=== PATIENT | female | born 1950 | race Caucasian/White ===

== ENCOUNTER 2020-04-14 14:28 | Outpatient (CLI) | payer MEDICARE ==
--- NOTE | 2020-04-14 14:58 | SJPRAD ---
CHEST PA LAT ROUTINE History: Shortness of breath Comparison: None Findings: Abnormal lobular mass left upper lobe measuring up to 2.8 cm. Pulmonary arteries are mildly distended. No pneumothorax. No significant effusion. Mild degenerative changes of the thoracic spine. Old left humeral neck fracture. Impression: 2.8 cm left upper lobe mass concerning for malignancy. Chest CT recommended. Thad Randhawa was notified of findings via [place].
== END 2020-04-14 14:29 | disposition home or self-care (01) ==
LOC: SCSRAD 14:28
PROVIDERS: ATTEND Physician Assistant
DX: R06.02 Shortness of breath (principal); R91.8 Other nonspecific abnormal finding of lung field
CPT/HCPCS: 87635; U0003

== ENCOUNTER 2020-05-11 12:11 | Outpatient (CLI) | payer MEDICARE ==
--- NOTE | 2020-05-11 13:05 | RAD ---
PA AND LATERAL VIEWS CHEST: HISTORY: Dyspnea. COMPARISON: Comparison is made the exam of 04/14/2020. FINDINGS: The heart size is normal. The aorta is tortuous. The nodular density in the left upper lobe is agai n seen. No lobar consolidation, pneumothoraces, or pleural effusions are seen. There are degenerati ve changes in the spine. There is an old healed fracture deformity of the left proximal humerus. POS: AH
== END 2020-05-11 12:12 | disposition home or self-care (01) ==
LOC: BICRAD 12:11
PROVIDERS: ATTEND Internal Medicine Pulmonary Disease
DX: R06.00 Dyspnea, unspecified (principal)
CPT/HCPCS: 71046

== ENCOUNTER 2020-05-17 10:13 | Outpatient (CLI) | payer MEDICARE ==
--- NOTE | 2020-05-17 11:26 | MMO ---
Bilateral MAMMO Bilat Diag DDI+NAKIA. CLINICAL HISTORY: Patient is 70 years old and is seen for diagnostic exam. VIEWS: The views performed were: bilateral craniocaudal with tomosynthesis; bilateral mediolateral oblique with tomosynthesis; and bilateral mediolateral with tomosynthesis. FILMS COMPARED: The present examination has been compared to a prior imaging study performed at [facility] on 05/17/2020. This study has been interpreted with the assistance of computer-aided detection. MAMMOGRAM FINDINGS: There are scattered fibroglandular densities. Spiculated mass mid left breast mid depth retroareolar. This lesion is not identified on ultrasound. Recommend stereotactic biopsy. In the right breast, there are no suspicious masses, calcifications or areas of architectural distortion. IMPRESSION: FINDING IN THE LEFT BREAST IS SUSPICIOUS. BIOPSY IS RECOMMENDED. THE RESULTS OF THIS EXAM WERE SENT TO THE PATIENT. ACR BI-RADS Category 4 - Suspicious abnormality - stereotactic biopsy scheduled. MAMMOGRAPHY NOTE: 1. A negative mammogram report should not delay a biopsy if a dominant of clinically suspicious mass is present. 2. Approximately 10% to 15% of breast cancers are not detected by mammography. 3. Adenosis and dense breasts may obscure an underlying neoplasm. Reported by: HOPE GROSS MD Electonically Signed: [id number]
--- NOTE | 2020-05-17 13:48 | ULT ---
ULTRASOUND LEFT BREAST: INDICATION: Ultrasound of left breast performed to assess a spiculated mass seen in the mid left breast retroareo lar region on mammography. FINDINGS: No sonographic abnormality identified. The spiculated mass seen on mammography is not identified by ultrasound. Recommend stereotactic biopsy of the mammographic lesion. IMPRESSION: BIRADS 4, suspicious lesion seen on mammogram. Stereotactic biopsy is recommended and is being sched uled. POS: OFF
== END 2020-05-17 10:14 | disposition home or self-care (01) ==
LOC: BICMAMMO 10:13
PROVIDERS: ATTEND Family Medicine
DX: R93.89 Abnormal findings on diagnostic imaging of other specified body structures (principal); N64.89 Other specified disorders of breast
CPT/HCPCS: 76642; 77066; G0279

== ENCOUNTER 2020-05-20 08:17 | Outpatient (CLI) | payer MEDICARE ==
--- NOTE | 2020-05-20 15:44 | PET ---
PET CT FROM SKULL TO MID THIGH: INDICATION: History of solitary pulmonary nodule. COMPARISON: Prior diagnostic mammogram dated 05/17/[address] of the thorax dated 04/16/2020. RADIOPHARMACEUTICAL: 11.6 mCi of F18-FDG IV. FINDINGS: The biodistribution for the examination appears acceptable. HEAD AND NECK: No hypermetabolic head and neck abnormality is evident. CHEST: The large pulmonary nodule within the superior segment of the left lower lobe, abutting the left jolie r fissure, is relatively stable in size to the comparison CT measuring 2.7 x 1.8 cm. The peak SUV ac tivity associated with this lesion is 4.2 and mean activity is 3.61. There are persistent scattered reticulonodular opacities within both upper lobes as well as portions of the right lower lobe with mild suspected increased metabolic uptake. These are not grossly hyperm etabolic. The ground-glass nodular opacity within the posterior segment of the left upper lobe is st able in size measuring 1.3 cm with no associated hypermetabolic uptake. The spiculated mass within the left breast demonstrates increased metabolic uptake with a max of 2.44 and a mean uptake of 2.25. No hypermetabolic lymphadenopathy is evident. ABDOMEN AND PELVIS: There are bilateral adrenal adenomas within the adrenal glands based on Hounsfield characteristics. These lesions demonstrate no hypermetabolic uptake. 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 There are bilateral renal cysts without a hypermetabolic uptake. N o hypermetabolic mass or lymphadenopathy is seen within the abdomen and pelvis. SKIN AND OSSEOUS STRUCTURES: No hypermetabolic osseous lesion is evident. There is a hemangioma within the left aspect of L4. No definite hypermetabolic osseous lesion is identified. IMPRESSION: Abnormal PET CT. 1. The pulmonary lesion involving the superior segment of the left lobe is hypermetabolic and is johana picious for malignancy or metastatic disease given the patient's spiculated mass lesion in the left b reast with increased metabolic uptake. Recommend consideration for image-guided sampling for further characterization. 2. Scattered reticulonodularity within both upper lobes as well as portions of the right lower lobe is suspicious for persistent bronchiolitis; however, early metastatic disease could have a similar ap pearance. 3. The bilateral adrenal nodules have Hounsfield characteristics on the noncontrast CT portion of th e examination consistent with adenomas and no associated hypermetabolic uptake. 4. Stable left renal angiomyelipoma, left renal cyst and left nephrolithiasis. 5. No hypermetabolic abnormality is seen within the abdomen and pelvis. No hypermetabolic osseous m etastatic lesion identified. POS: BH
== END 2020-05-20 08:18 | disposition home or self-care (01) ==
LOC: PET 08:17
PROVIDERS: ATTEND Internal Medicine Pulmonary Disease
DX: R91.8 Other nonspecific abnormal finding of lung field (principal); J98.4 Other disorders of lung; D17.71 Benign lipomatous neoplasm of kidney; N28.1 Cyst of kidney, acquired; N20.0 Calculus of kidney; E27.8 Other specified disorders of adrenal gland
CPT/HCPCS: 78815; A9552

== ENCOUNTER → 2020-05-26 | Day surgery (SDC) | payer MEDICARE ==
--- NOTE | 2020-05-26 09:20 | MMO ---
EXAM: MAMMO Brst Bx Stereo Biopsy marker clip placement left breast PROVIDED CLINICAL HISTORY: Spiculated mass central left breast. Biopsy recommended. COMPARISON: Mammograms on 05/17/2020 TECHNIQUE: The procedure including the risks and complications were explained to the patient, and informed conse nt was obtained. Patient was placed on the stereotactic guided breast biopsy table in the prone position. The spiculated mass in the central left breast was localized utilizing stereotactic guidanc e. The area was prepped in usual fashion, and the skin and subcutaneous tissues were infiltrated with buffered 1% lidocaine for local anesthesia. A small skin incision was made. A 10-gauge biopsy needle was advanced followed by stereotactic images . The needle was further advanced, and again imaging was performed demonstrating the needle within the central aspect of the mass. A total of six 10-gauge core needle biopsy specimens were obtained. A biopsy marker clip was deployed at site of biopsy within the mass. Hemostasis was achieved with direct pressure. A dry sterile dressing was placed. Patient tolerated th e procedure well and without immediate complication. Patient was transported to mammography for additional imaging. IMPRESSION: 1. Technically successful stereotactic guided biopsy of a left breast spiculated mass. Total of 6 cor e needle biopsy specimens were obtained. Pathology is pending. 2. Technically successful biopsy marker clip placement.
--- NOTE | 2020-05-26 09:23 | MMO ---
EXAM: MAMMO Diag Post Proc Ltd Lt PROVIDED CLINICAL HISTORY: Spiculated mass left breast. Patient is post stereotactic guided breast biopsy and biopsy marker clip placement COMPARISON: Mammograms on 05/17/2020 FINDINGS: Mammograms again demonstrate the spiculated mass in the middle depth slightly inner left breast. Biop sy marker clip is now seen adjacent to the mass related to recent biopsy and biopsy marker clip placement. IMPRESSION: Post biopsy mammogram demonstrates biopsy marker clip at site of biopsy left breast.
== END ==
LOC: MAMMO 06:50
PROVIDERS: ATTEND Family Medicine
PROC: 0H9U3ZX Drainage of Left Breast, Percutaneous Approach, Diagnostic (ICD-10-PCS; principal; 2020-05-26)
DX: C50.112 Malignant neoplasm of central portion of left female breast (principal)
CPT/HCPCS: 19081; 88305; 88341; 88342

== ENCOUNTER 2020-06-01 08:11 | Day surgery (SDC) | payer MEDICARE ==
[2020-05-31 11:45] VITALS: BMI 46.5
[2020-06-01 08:36] LABS: #Basophils 0.1 thou/uL (0.0-0.2); #Eosinphils 0.3 thou/uL (0.0-0.7); #Monocytes 0.5 thou/uL (0.11-0.59); #Neutrophils 7.8 thou/uL (1.40-6.50); %Basophils 0.8 % (0.0-1.0); %Eosinophils 3.1 % (0.0-10.0); %Lymphocytes 18.8 % (21.0-51.0); %Monocytes 4.7 % (0.0-10.0); %Neutrophils 72.5 % (42.0-75.0); Hemoglobin 14.4 g/dL (12.0-16.0); Mean Corpuscular HGB CONC 32.3 g/dL (32.0-36.0); Mean Corpuscular Hemoglobin 28.8 pg (27.0-31.0); Mean Platelet Volume 8.8 fL (7.4-10.4); Platelet Count 284 thou/uL (130-400); RBC Distribution Width 13.2 % (11.5-14.5); White Blood Cell (WBC) Count 10.7 thou/uL (4.8-10.8)
[2020-06-01 08:38] LABS: INR-International Normal Ratio 0.9; Prothrombin Time 12.8 sec (12.0-14.7)
[2020-06-01 08:39] LABS: PTT 30.3 sec (22.9-36.1)
[2020-06-01 09:37] VITALS: BP 174/93; TEMP 98
--- NOTE | 2020-06-01 11:02 | RAD ---
Chest 2 views inspiratory expiratory HISTORY: Lung mass. Biopsy. FINDINGS: Lungs are well-inflated. Lobular density at the left apex (actually in the superior segment lower lobe) is more conspicuous and larger, consistent with a small amount of blood around the biopsy site. No evidence of pneumothorax. Old fracture of the left shoulder again demonstrated. IMPRESSION : No evidence of pneumothorax.
--- NOTE | 2020-06-01 11:13 | CT ---
Left lung mass CT-guided Conscious sedation: Approximately 30 minutes spent with the patient for conscious sedation. HISTORY: Left lower lobe lung mass. FINDINGS: After explaining the procedure and answering all questions, limited CT imaging of the chest was performed with patient in left lateral decubitus position. Sterile technique, buffered local anesthesia, conscious sedation, CT guidance, and a posterior approa ch were used to carefully advance the tip of a 19-gauge trocar needle to the lobular mass at the apex of the superior segment left lower lobe. Position was confirmed with CT. A total of 2 20-gauge specimens were obtained, the first with a good core of white tissue. The second yielding little tissue.. There was venous blood from the trocar needle. Patient began to cough, so additional samples were not obtained because of increasing risk of pneumothorax.. Needle was removed. No evidence of complication. Small amount of blood was seen around the mass after biopsy. Patient tolerated the procedure well and was returned to the holding area in good condition for further monitoring. IMPRESSION : Technically successful CT-guided biopsy left lower lobe lung mass. Pathology is pending.
--- NOTE | 2020-06-01 12:14 | RAD ---
Chest 2 views inspiratory expiratory HISTORY: Lung mass. Biopsy. COMPARISON: 06/01/2020. FINDINGS: Cardiac silhouette and pulmonary vasculature are unremarkable. Mediastinum is midline. Lobular mass at the left apex again demonstrated. No pneumothorax. IMPRESSION : No evidence of pneumothorax. Patient will be cleared radiographically for discharge.
--- NOTE | 2020-06-02 15:43 | CT ---
Left lung mass CT-guided Conscious sedation: Approximately 30 minutes spent with the patient for conscious sedation. HISTORY: Left lower lobe lung mass. FINDINGS: After explaining the procedure and answering all questions, limited CT imaging of the chest was performed with patient in left lateral decubitus position. Sterile technique, buffered local anesthesia, conscious sedation, CT guidance, and a posterior approa ch were used to carefully advance the tip of a 19-gauge trocar needle to the lobular mass at the apex of the superior segment left lower lobe. Position was confirmed with CT. A total of 2 20-gauge specimens were obtained, the first with a good core of white tissue. The second yielding little tissue.. There was venous blood from the trocar needle. Patient began to cough, so additional samples were not obtained because of increasing risk of pneumothorax.. Needle was removed. No evidence of complication. Small amount of blood was seen around the mass after biopsy. Patient tolerated the procedure well and was returned to the holding area in good condition for further monitoring. IMPRESSION : Technically successful CT-guided biopsy left lower lobe lung mass. Pathology is pending. Transcribed Date/Time: 06/02/2020 3:42 PM
== END 2020-06-01 12:20 | disposition home or self-care (01) ==
LOC: CT 08:11
PROVIDERS: ATTEND Internal Medicine Pulmonary Disease
PROC: 0BBJ3ZX Excision of Left Lower Lung Lobe, Percutaneous Approach, Diagnostic (ICD-10-PCS; principal; 2020-06-01)
DX: R91.1 Solitary pulmonary nodule (principal); N64.89 Other specified disorders of breast; I10 Essential (primary) hypertension; Z87.891 Personal history of nicotine dependence; Z79.899 Other long term (current) drug therapy; Z88.0 Allergy status to penicillin
CPT/HCPCS: 32405; 36415; 71045; 77012; 85025; 85610; 85730; 88305; 88341; 88342

== ENCOUNTER 2020-06-21 07:00 | Day surgery (SDC) | payer MEDICARE ==
[2020-06-18 10:47] VITALS: BMI 46.5
--- NOTE | 2020-06-21 08:45 | NM ---
Exam: Nuclear medicine lymphoscintigraphy HISTORY: Malignant neoplasm of the left breast. TECHNIQUE: Patient was administered 0.404 mCi of technetium 99m filtered sulfur colloid subcutaneousl y. FINDINGS: There are 2 sentinel lymph nodes. One lymph node appears to be in the left axilla. The second lymph n ode may be an intramammary lymph node. IMPRESSION: 2 sentinel lymph node as described above
[2020-06-21] MEDS ORDERED: Acetaminophen 500 MG TAB ONE (09:04)
[2020-06-21] MEDS ORDERED: Ketorolac Tromethamine 30 MG/ML VIAL ONE (09:04)
[2020-06-21] MEDS ORDERED: Rocuronium Bromide 10 MG/ML (10ML VIAL) ONE (09:28)
[2020-06-21] MEDS ORDERED: Ondansetron PF 4 MG/2 ML Vial ONE ×3 (09:28→14:43)
[2020-06-21] MEDS ORDERED: PHENYLEPHRINE-NS 100 MCG/ML 10 ML SYRINGE ONE (09:28)
[2020-06-21] MEDS ORDERED: Dexamethasone 20 MG/5 ML VIAL ONE (09:28)
[2020-06-21] MEDS ORDERED: PROPOFOL 200 MG/20 ML VIAL ONE (09:28)
[2020-06-21] MEDS ORDERED: Glycopyrrolate 0.2 MG/ML 5 ML SYRINGE ONE (09:28)
[2020-06-21] MEDS ORDERED: Lidocaine 1% PF 5 ML VIAL ONE (09:28)
[2020-06-21] MEDS ORDERED: Levofloxacin 500 mg/D5W 100 ml Premix Bag ONE (09:39)
[2020-06-21] MEDS ORDERED: Methylene Blue 50 MG/10 ML AMPUL ONE (11:12)
[2020-06-21] MEDS ORDERED: Bupivacaine/Epinephrine 0.25% 30 ML VIAL ONE (11:12)
[2020-06-21] MEDS ORDERED: Isosulfan Blue 50 MG/5 ML VIAL ONE (11:13)
[2020-06-21] MEDS ORDERED: Fentanyl 100 MCG/2 ML VIAL ONE (11:26)
[2020-06-21] MEDS ORDERED: Lidocaine 1% (PF) 30 ML VIAL ONE (13:11)
--- NOTE | 2020-06-21 15:41 | MMO ---
NEEDLE LOCALIZATION WITH MAMMOGRAPHIC GUIDANCE SURGICAL SPECIMENT: Date: 06/21/2020 HISTORY: Left breast cancer. FINDINGS: Successful left breast needle localization with mammographic guidance. 10 cm [place] needle and wire we re advanced adjacent to the clip and lesion. No immediate postprocedure complications. TECHNIQUE: Consent obtained to perform a left breast needle localization with mammographic guidance. Lesion was identified. Skin was prepped and draped in the sterile fashion. 1% lidocaine, buffered with sodium bi carbonate, was used for local anesthesia. Via a needle approach, a 10 cm [place] needle and wire were a dvanced into the left breast. Needle position was confirmed. Wire was deployed. Post deployment mammo gram was obtained. Wire and needle were secured to the patient. No immediate postprocedure complicati on. SPECIMEN RADIOGRAPH; Single radiograph specimen demonstrates a wire clip and lesion to be present. Findings were conveyed to the OR on 06/21/2020 at 1424 hours. IMPRESSION: Successful needle localization. Successful presentation of clip and lesion on the specimen radiograph . CODE CR. POS: MARYANA
[2020-06-21] MEDS ORDERED: HYDROcodone/Acetaminophen 5/325 mg Tablet ONE (15:55)
--- NOTE | 2020-06-21 19:16 | OP ---
DATE OF PROCEDURE: 06/21/2020 PREOPERATIVE DIAGNOSIS: Left breast cancer. POSTOPERATIVE DIAGNOSIS: Left breast cancer. PROCEDURES PERFORMED: Left breast needle localized lumpectomy, left axillary sentinel lymph node biopsy. ANESTHESIA: General endotracheal. INDICATIONS: The patient is a morbidly obese, 70-year-old white female, who was recently diagnosed with left breast cancer. She also had a lesion within her lung that was concerning, which has been biopsied and proven to be negative. She presents at this time for definitive surgery in regard to her breast cancer. She has undergone preoperative lymphoscintigraphy, revealing axillary sentinel lymph nodes and mammographic needle localization of the left breast mass. DESCRIPTION OF OPERATION: Informed consent was obtained. The patient was taken to the operating room, where general endotracheal anesthesia was obtained with the patient in supine position. Left breast and axilla were prepped with ChloraPrep and draped in sterile fashion. A 4 mL of Lymphazurin was infiltrated into the left breast in the periareolar subdermal tissue and was massaged for 5 minutes. Attention was turned first to the axilla. Local anesthetic was infiltrated using a mixture of 1% lidocaine with epinephrine and 0.25% Marcaine. A transverse incision was created and dissection carried through skin and subcutaneous tissue as well as ample fatty tissue. Careful dissection was carried out to identify 3 separate sentinel lymph nodes. All three had some radioactivity, but only two had any blue dye. These were each dissected circumferentially and all investing lymphatics were divided between clamps and 3-0 silk ties. Meticulous hemostasis was obtained within the wound. No further radioactivity was identified. The wound was closed in layers with 3-0 and 4-0 Monocryl and additional local anesthetic was instilled in the wound. Attention was turned to the breast. Ultrasound was used to trace the tract of the needle. This was an 8 cm needle that entered the left breast in a medial to lateral fashion at about 10 to 10:30 radian of the breast. Local anesthetic was infiltrated and an incision was created overlying the localizing needle. Dissection was carried deeply into the breast. I then dissected laterally to identify the needle, and at the juncture where the needle was 6 cm from the tip, the needle was removed and the wire was replaced to the main incision. The tissue was grasped with Allis clamps and a wide lumpectomy was performed around the localizing needle, ensuring appropriate posterior tissue since the cancer appeared to be on the posterior aspect of the needle. The specimen was removed intact and it was tagged for orientation and submitted to Radiology. Specimen mammography revealed the clip present within the specimen. Meticulous hemostasis was obtained within the wound. The wound was irrigated and all irrigant was aspirated. The wound was closed in layers with 3-0 and 4-0 Monocryl. Dermabond was placed externally to both incisions. Additional local anesthetic was infiltrated into both wounds. There were no complications. Blood loss was negligible. The patient tolerated the procedure well. Job ID: [id number]
== END 2020-06-21 16:44 | disposition home or self-care (01) ==
LOC: SDC 07:00
PROVIDERS: ATTEND Specialist
PROC: 0HBU0ZZ Excision of Left Breast, Open Approach (ICD-10-PCS; principal; 2020-06-21)
PROC: 07B60ZX Excision of Left Axillary Lymphatic, Open Approach, Diagnostic (ICD-10-PCS; 2020-06-21)
DX: C50.212 Malignant neoplasm of upper-inner quadrant of left female breast (principal); I10 Essential (primary) hypertension; Z17.0 Estrogen receptor positive status [ER+]; Z79.899 Other long term (current) drug therapy; Z87.891 Personal history of nicotine dependence; Z88.0 Allergy status to penicillin
CPT/HCPCS: 19281; 19301; 38525; 38900; 76098; 78195; 88307; 88342; A9541; Q9968; J1100; J1885; J1956; J2001; J2405; J2704; J3010

== ENCOUNTER 2020-10-19 08:53 | Outpatient (CLI) | payer MEDICARE ==
--- NOTE | 2020-10-19 09:33 | BD ---
Bone densitometry: INDICATIONS: Post menopausal screening Lumbar spine: BMD g/cm2 L1: 0.845 T-Score: -1.3 L2:0.941 T-Score: -0.8 L3:0.923 T-Score:-1.5 L4:0.961 T-Score:-0.9 L1-L4:0.922 T-Score:-1.1 Femoral neck:0.629 T-Score:-2.0 Total femur:0.717 T-Score:-1.8 IMPRESSION: 1. Bone mineral density of lumbar spineindicates osteopenia. 2. Bone mineral density of femoral neckindicates osteopenia. 10 year fracture risk: Major osteoporotic fracture:9.9% Hip fracture:1.8%
== END 2020-10-19 08:54 | disposition home or self-care (01) ==
LOC: BICMAMMO 08:53
PROVIDERS: ATTEND Internal Medicine Hematology & Oncology
DX: Z13.820 Encounter for screening for osteoporosis (principal); T38.6X5A Adverse effect of antigonadotrophins, antiestrogens, antiandrogens, not elsewhere classified, initial encounter; M85.89 Other specified disorders of bone density and structure, multiple sites; Z78.0 Asymptomatic menopausal state
CPT/HCPCS: 77080

== ENCOUNTER 2020-11-17 12:56 | Outpatient (CLI) | payer MEDICARE ==
[2020-11-17] MEDS ORDERED: Iopamidol 370 76% 100 ML VIAL ONE (14:54)
== END 2020-11-17 12:57 | disposition home or self-care (01) ==
LOC: BICCT 12:56
PROVIDERS: ATTEND Internal Medicine Hematology & Oncology
DX: C50.912 Malignant neoplasm of unspecified site of left female breast (principal); R91.8 Other nonspecific abnormal finding of lung field; J98.4 Other disorders of lung
CPT/HCPCS: 71260; 82565; Q9967

== ENCOUNTER 2021-05-27 09:02 | Outpatient (CLI) | payer MEDICARE | END 2021-05-27 09:03 | disposition home or self-care (01) | LOC: BICCT 09:02 | DX: R91.8 Other nonspecific abnormal finding of lung field (principal) | CPT/HCPCS: 71260; 82565 ==

== ENCOUNTER 2021-07-22 13:43 | Outpatient (CLI) | payer MEDICARE | END 2021-07-22 13:44 | disposition home or self-care (01) | LOC: BICMAMMO 13:43 | PROVIDERS: ATTEND Specialist | DX: C50.912 Malignant neoplasm of unspecified site of left female breast (principal) | CPT/HCPCS: 77066; G0279 ==

== ENCOUNTER 2022-08-28 10:24 | Outpatient (CLI) | payer OTHER | END 2022-08-28 10:25 | disposition home or self-care (01) | LOC: BICMAMMO 10:24 | PROVIDERS: ATTEND Specialist | DX: C50.912 Malignant neoplasm of unspecified site of left female breast (principal); R92.1 Mammographic calcification found on diagnostic imaging of breast; Z90.12 Acquired absence of left breast and nipple; Z98.890 Other specified postprocedural states | CPT/HCPCS: 77066; G0279 ==

== ENCOUNTER 2023-04-18 08:56 | Outpatient (CLI) | payer OTHER | END 2023-04-18 08:57 | disposition home or self-care (01) | LOC: BICMAMMO 08:56 | PROVIDERS: ATTEND Specialist | DX: Z08 Encounter for follow-up examination after completed treatment for malignant neoplasm (principal); N64.89 Other specified disorders of breast; Z85.3 Personal history of malignant neoplasm of breast | CPT/HCPCS: 77065; G0279 ==